=== PATIENT | male | born 1975 | race Hispanic/Latino ===

== ENCOUNTER 2017-08-03 07:12 | Day surgery (SDC) | payer OTHER ==
[2017-07-31 09:37] VITALS: BMI 35.2
[2017-08-03] MEDS ORDERED: Lidocaine Hydrochloride 5 ML INJ ONE (09:27)
[2017-08-03] MEDS ORDERED: Propofol 10 mg/ml Inj (20 ML) ONE ×2 (09:27→09:54)
[2017-08-03] MEDS ORDERED: Midazolam 2 MG/2 ML VIAL ONE (09:27)
[2017-08-03] MEDS: cefTRIAXone IV 1 gm in Dextros 50 ML IVPB ONE ×2 (09:30→09:35)
[2017-08-03] MEDS ORDERED: Ciprofloxacin 400mg/200ml D5W 400 MG/200 ML BAG IVPB ONE (09:30)
[2017-08-03] MEDS ORDERED: Lactated Ringer's 1,000 ML IV ONE ×2 (09:35→11:05)
[2017-08-03] MEDS ORDERED: Lidocaine 2% Jelly (Uro-Jet) ONE (09:40)
[2017-08-03] MEDS: Gentamicin 160 MG in Sodium Chloride 0.9% 100 ML IVPB ONE ×2 (09:40→09:43)
[2017-08-03 11:10] VITALS: RESP 16
[2017-08-03 12:14] VITALS: BP 111/55; PULSE 60; TEMP 97.6; O2SAT 97
--- NOTE | 2017-08-03 21:24 | OP ---
PROCEDURE DATE: 08/03/2017 PREOPERATIVE DIAGNOSIS: Elevated prostate-specific antigen 5.9, right prostatic nodule. POSTOPERATIVE DIAGNOSIS: Elevated prostate-specific antigen 5.9, right prostatic nodule. PROCEDURE: Transrectal ultrasound diagnostic, transrectal ultrasound guidance and prostatic biopsies. DESCRIPTION OF PROCEDURE: The patient confirmed in the holding area, he is not taken any NSAIDs for 10 days. He was told that postoperatively he needs to take it easy for two days, call my office for followup appointment in one week and in the event he gets fever, chills or shakes, he is to call me immediately and/or go right to the emergency room. He was brought to the operating room, placed under anesthesia in lithotomy position and premedicated with 1 gm of Rocephin IV piggyback and 160 mg of gentamicin IV piggyback. Digital rectal exam was performed after first cleansing the rectum with Betadine. The entire right lobe was asymmetric and somewhat firm and so I feel that there was no specific nodule in one particular area rather, the entire lobe was somewhat suspicious. We now performed transrectal ultrasound diagnostic. Total volume was 19.5 cm's. However, there was a definite area of hyperechoic activity on the right lobe extending from the mid towards the apex. Because of the findings diagnostically on the ultrasound and the digital rectal exam, I decided to perform a conventional six sextant prostate biopsy with 2 specimens per sextant. I deliberately directed the biopsy instrument into the aforementioned area of concern. We then maintained the transducer for about 5 minutes to promote hemostasis and upon removal there was no active bleeding noted. The patient tolerated the procedure well. Rolando Stevens MD
== END 2017-08-03 12:05 | disposition home or self-care (01) ==
LOC: C.SDS 07:12
PROVIDERS: ATTEND Urology
DX: R97.20 Elevated prostate specific antigen [PSA] (principal); N40.2 Nodular prostate without lower urinary tract symptoms
CPT/HCPCS: 55700; 88305; 88342; J0696; J1580; J7120